=== PATIENT | female | born 1985 | race African-American/Black ===

== ENCOUNTER 2017-05-29 08:57 | Emergency (ER) | payer OTHER ==
[~2017-05-29] VITALS: Ht 162.6 cm; Wt 82.7 kg
[2017-05-29 09:18] VITALS: BP 133/88
== END 2017-05-29 10:00 | disposition home or self-care (01) ==
LOC: ED 08:57
DX: H65.92 Unspecified nonsuppurative otitis media, left ear (principal); J00 Acute nasopharyngitis [common cold]

== ENCOUNTER 2017-11-11 07:57 | Emergency (ER) | payer OTHER ==
[2017-11-11 09:31] LABS: UA SPECIFIC GRAVITY >=1.030 (1.005-1.035); microscopic required? YES; urine erythrocyte 1+ (NEGATIVE)
[2017-11-11 10:19] VITALS: BP 105/66
== END 2017-11-11 10:19 | disposition home or self-care (01) ==
LOC: ED 07:57
PROVIDERS: Emergency Medicine
DX: R11.2 Nausea with vomiting, unspecified (principal); R19.7 Diarrhea, unspecified; R10.9 Unspecified abdominal pain
CPT/HCPCS: J0500; Q0162

== ENCOUNTER 2018-05-23 02:29 | Emergency (ER) | payer OTHER ==
[~2018-05-23] VITALS: Ht 162.6 cm; Wt 88.9 kg
[2018-05-23 02:35] VITALS: Ht 162.6 cm; Wt 88.9 kg
[2018-05-23 04:52] VITALS: BP 119/89
== END 2018-05-23 04:50 | disposition left against medical advice (07) ==
LOC: ED 02:29
DX: R51 Headache (principal); R11.10 Vomiting, unspecified

== ENCOUNTER 2018-08-28 13:47 | Emergency (ER) | payer OTHER ==
[~2018-08-28] VITALS: Ht 162.6 cm; Wt 91.2 kg
[2018-08-28 14:05] VITALS: Ht 162.6 cm; Wt 91.2 kg
[2018-08-28 16:14] VITALS: BP 126/90
== END 2018-08-28 16:13 | disposition home or self-care (01) ==
LOC: ED 13:47
DX: J06.9 Acute upper respiratory infection, unspecified (principal); J98.01 Acute bronchospasm
CPT/HCPCS: J7512; J7613; J7644; Q0092; Q0162

== ENCOUNTER 2018-11-05 07:41 | Emergency (ER) | payer OTHER ==
[~2018-11-05] VITALS: Ht 162.6 cm; Wt 93.0 kg
[2018-11-05 07:50] VITALS: Ht 162.6 cm; Wt 93.0 kg
[2018-11-05 08:48] LABS: PLATELET COUNT 322 x10^3mcL (130-400)
[2018-11-05 08:53] LABS: BASOPHIL % 0 % (0-2); RED CELL DISTRIBUTION WIDTH 15.7 % (11.5-14.5)
[2018-11-05 08:54] LABS: CALCIUM 8.9 mg/dL (8.5-10.1); CARBON DIOXIDE 29.5 mmol/L (21-32); CHLORIDE SERUM 102 mmol/L (98-107); CREATININE SERUM 0.9 mg/dL (0.6-1.0); GFR1 > 60 mL/min; GLUCOSE SERUM 98 mg/dL (74-106); SODIUM SERUM 138 mmol/L (136-145)
[2018-11-05 08:58] LABS: ALBUMIN 3.4 g/dL (3.4-5.0); ALKALINE PHOSPHATASE 149 U/L (46-116); AST/SGOT 12 U/L (15-37); BILIRUBIN TOTAL 0.72 mg/dL (0.20-1.00); LIPASE 79 IU/L (73-393); TOTAL PROTEIN, SERUM 8.2 g/dL (6.4-8.2)
[2018-11-05 09:14] LABS: ALT/SGPT 24 U/L (14-59)
[2018-11-05 11:28] VITALS: BP 118/59
== END 2018-11-05 11:28 | disposition home or self-care (01) ==
LOC: ED 07:41
PROVIDERS: Emergency Medicine
DX: K29.00 Acute gastritis without bleeding (principal)
CPT/HCPCS: J1885; J2550; J7030

== ENCOUNTER 2019-02-03 12:21 | Emergency (ER) | payer OTHER ==
[~2019-02-03] VITALS: Ht 162.6 cm; Wt 95.7 kg
[2019-02-03 12:29] VITALS: BP 153/96; Ht 162.6 cm; Wt 95.7 kg
== END 2019-02-03 13:47 | disposition home or self-care (01) ==
LOC: ED 12:21
DX: J06.9 Acute upper respiratory infection, unspecified (principal)
CPT/HCPCS: J1100

== ENCOUNTER 2019-03-28 02:38 | Emergency (ER) | payer OTHER | END 2019-03-28 04:35 | disposition home or self-care (01) | LOC: ED 02:38 ==

== ENCOUNTER 2019-07-11 20:10 | Emergency (ER) | payer OTHER ==
[~2019-07-11] VITALS: Ht 167.6 cm; Wt 88.9 kg
[2019-07-11 20:36] VITALS: Ht 167.6 cm; Wt 88.9 kg
[2019-07-12 00:57] VITALS: BP 128/87
== END 2019-07-12 00:57 | disposition home or self-care (01) ==
LOC: ED 20:10
DX: G43.909 Migraine, unspecified, not intractable, without status migrainosus (principal); R09.81 Nasal congestion
CPT/HCPCS: J1885; J2765

== ENCOUNTER 2019-09-17 09:19 | Emergency (ER) | payer OTHER ==
[~2019-09-17] VITALS: Ht 162.6 cm; Wt 93.9 kg
[2019-09-17 09:23] VITALS: Ht 162.6 cm; Wt 93.9 kg
[2019-09-17 10:49] LABS: CALCIUM 8.8 mg/dL (8.5-10.1); CARBON DIOXIDE 24.9 mmol/L (21-32); CHLORIDE SERUM 106 mmol/L (98-107); CREATININE SERUM 0.9 mg/dL (0.6-1.0); GFR1 > 60 mL/min; GLUCOSE SERUM 77 mg/dL (74-106); POTASSIUM SERUM 3.5 mmol/L (3.5-5.1); SODIUM SERUM 141 mmol/L (136-145)
[2019-09-17 10:52] LABS: BASOPHIL % 0.2 % (0-2); PLATELET COUNT 329 x10^3mcL (130-400)
[2019-09-17 10:53] LABS: RED CELL DISTRIBUTION WIDTH 15.1 % (11.5-14.5)
[2019-09-17 10:54] LABS: ALKALINE PHOSPHATASE 129 U/L (46-116); ALT/SGPT 26 U/L (14-59); AST/SGOT 11 U/L (15-37); BILIRUBIN TOTAL 0.76 mg/dL (0.20-1.00); TOTAL PROTEIN, SERUM 7.9 g/dL (6.4-8.2)
[2019-09-17 10:56] LABS: ALBUMIN 3.2 g/dL (3.4-5.0)
[2019-09-17 14:10] VITALS: BP 127/73
== END 2019-09-17 14:10 | disposition home or self-care (01) ==
LOC: ED 09:19
PROVIDERS: Emergency Medicine
DX: R10.9 Unspecified abdominal pain (principal); D72.829 Elevated white blood cell count, unspecified; G43.909 Migraine, unspecified, not intractable, without status migrainosus; Z98.890 Other specified postprocedural states
CPT/HCPCS: 36415

== ENCOUNTER 2019-09-18 13:44 | Emergency (ER) | payer OTHER ==
[~2019-09-18] VITALS: Ht 162.6 cm; Wt 93.9 kg
[2019-09-18 14:08] VITALS: Ht 162.6 cm; Wt 93.9 kg
[2019-09-18 15:25] LABS: BASOPHIL % 0.6 % (0-2); PLATELET COUNT 333 x10^3mcL (130-400)
[2019-09-18 15:26] LABS: RED CELL DISTRIBUTION WIDTH 15.5 % (11.5-14.5)
[2019-09-18 18:30] VITALS: BP 115/76
== END 2019-09-18 18:30 | disposition home or self-care (01) ==
LOC: ED 13:44
PROVIDERS: Emergency Medicine
DX: R10.814 Left lower quadrant abdominal tenderness (principal); R10.30 Lower abdominal pain, unspecified; D72.829 Elevated white blood cell count, unspecified; G43.909 Migraine, unspecified, not intractable, without status migrainosus
CPT/HCPCS: 36415

== ENCOUNTER 2019-12-01 06:53 | Emergency (ER) | payer OTHER ==
[~2019-12-01] VITALS: Ht 162.6 cm; Wt 93.6 kg
[2019-12-01 07:01] VITALS: BP 146/98; Ht 162.6 cm; Wt 93.6 kg
== END 2019-12-01 08:08 | disposition home or self-care (01) ==
LOC: ED 06:53
DX: K02.9 Dental caries, unspecified (principal); H92.02 Otalgia, left ear; E66.9 Obesity, unspecified; G43.909 Migraine, unspecified, not intractable, without status migrainosus; Z68.35 Body mass index [BMI] 35.0-35.9, adult
CPT/HCPCS: J1885

== ENCOUNTER 2020-01-06 11:49 | Emergency (ER) | payer OTHER ==
[~2020-01-06] VITALS: Ht 162.6 cm; Wt 95.3 kg
[2020-01-06 11:53] VITALS: Ht 162.6 cm; Wt 95.3 kg
[2020-01-06 14:08] VITALS: BP 152/78
== END 2020-01-06 14:08 | disposition home or self-care (01) ==
LOC: ED 11:49
DX: S63.502A Unspecified sprain of left wrist, initial encounter (principal); G43.909 Migraine, unspecified, not intractable, without status migrainosus; X58.XXXA Exposure to other specified factors, initial encounter; Y93.89 Activity, other specified; Y92.89 Other specified places as the place of occurrence of the external cause; Y99.8 Other external cause status

== ENCOUNTER 2020-03-11 03:39 | Emergency (ER) | payer OTHER ==
[~2020-03-11] VITALS: Ht 162.6 cm; Wt 96.2 kg
[2020-03-11 03:45] VITALS: BP 130/103; Ht 162.6 cm; Wt 96.2 kg
== END 2020-03-11 04:02 | disposition home or self-care (01) ==
LOC: ED 03:39
DX: K08.89 Other specified disorders of teeth and supporting structures (principal); G43.909 Migraine, unspecified, not intractable, without status migrainosus

== ENCOUNTER 2020-09-08 13:01 | Emergency (ER) | payer OTHER ==
[~2020-09-08] VITALS: Ht 162.6 cm; Wt 99.3 kg
[2020-09-08 13:09] VITALS: Ht 162.6 cm; Wt 99.3 kg
[2020-09-08 13:34] VITALS: BP 142/91
== END 2020-09-08 13:34 | disposition home or self-care (01) ==
LOC: ED 13:01
DX: T86.890 Other transplanted tissue rejection (principal); K08.89 Other specified disorders of teeth and supporting structures